=== PATIENT | male | born 1970 | race American Indian/Alaskan Native ===

== ENCOUNTER 2016-10-09 15:50 | Emergency (ER) | payer BC, OTHER ==
[2016-10-09] MEDS ORDERED: Sodium Chloride 0.9% 10 ML Syringe FLUSH PRN (16:22)
[2016-10-09 17:11] LABS: CHLORIDE,CL 103 mmol/L (101-111); SODIUM,NA 138 mmol/L (135-145)
--- NOTE | 2016-10-09 18:23 | CT ---
Clinical history: 46-year-old male fever, headache and confusion (recent exposure mosquitoes). Rule o ut sinusitis or intracranial abnormality. Scan technique: Volume acquisition of data emergency unenhanced CT scan of the facial bones, sinuses and head/brain obtained while the patient was lying supine on the Siemens multislice CT scanner [place], [place]. All data archived in the PACS system for storage, reforma tting and study (soft tissue, bone and brain windows). Interpretation: Mucoperiosteal thickening both maxillary antra but no pathologic air-fluid levels. The mastoid and other paranasal sinuses are symmetrically pneumatized and clear. No foreign bodies. N janna septum straight and nonedematous turbinates. Uniformly thick bony calvarium without sign of skull fracture, underlying brain contusion or abnormal extracerebral/intracranial epidural or subdural hematoma. Normal TMJs. Symmetric rosen-white matter pattern and underlying mirror-image normal ventricular system. Cerebellum and brainstem unremarkable. No hydrocephalus. No pathologic intracranial calcifications or signs of acute intracerebral/intraventricular/subarachno id bleed. No ischemic infarcts. CONCLUSION: Chronic maxillary sinusitis. Other sinuses clear. Negative unenhanced CT scan of the [facility] n.
[2016-10-09] MEDS ORDERED: Doxycycline 100 MG Cap PO ONE (18:38)
[2016-10-09] MEDS ORDERED: cefTRIAXone 1 GM in Sodium Chloride 0.9% 50 ML IV ONE (18:38)
[2016-10-09] MEDS ORDERED: Meclizine 12.5 MG Tab PO ONE (18:39)
[2016-10-09 19:02] VITALS: BP 127/85
--- NOTE | 2016-10-09 19:04 | EDM.PDOC ---
Scribed by Opal Olivera 10/09/16 1902 for Rakan Miller MD ED HPI GENERAL MEDICAL PROBLEM - General Chief Complaint: Fever Stated Complaint: FROM [facility] Time Seen by Provider: 10/09/16 16:13 Source of Information: Reports: Patient, RN Notes Reviewed, Other (Clinic provider) History Limitations: Reports: No Limitations - History of Present Illness INITIAL COMMENTS - FREE TEXT/NARRATIVE: Sent from clinic with complaint of fever x1 week with headache and a slight sense of confusion. Patient was treated last week with a Z-KELSEY which he completed for a diagnosis of pneumonia. Patient states the Z-KELSEY did seem to resolve his cough. The other symptoms seem to have persistent. His clinic provider was concerned [place] a week prior to onset of his symptoms, during which time he had extensive tick and mosquito exposure. Denies any nausea, vomiting, visual changes, neck pain or stiffness, swollen joints or rash. He admits to generalized body aches and mild vertigo. Location: Reports: Generalized Quality: Reports: Ache Severity: Moderate Improves with: Reports: None Worsens with: Reports: None Associated Symptoms: Reports: No Other Symptoms - Related Data Allergies Allergy/AdvReac Type Severity Reaction Status Date / Time aspirin Allergy Swelling Verified 10/09/16 16:17 Home Meds: Home Meds Azithromycin [Zithromax] 250 mg PO DAILY 10/09/16 [History] Social & Family History - Family History Family Medical History: Noncontributory ED ROS GENERAL - Review of Systems Review Of Systems: ROS reveals no pertinent complaints other than HPI. ED EXAM, GENERAL - Physical Exam Exam: See Below Exam Limited By: No Limitations General Appearance: Alert, WD/WN, No Apparent Distress Eye Exam: Bilateral Eye: Other (lateral gaze nystagmus) Ears: Normal External Exam, Normal Canal, Hearing Grossly Normal, Normal TMs Nose: Normal Inspection, Normal Mucosa, No Blood Throat/Mouth: Normal Inspection, Normal Lips, Normal Teeth, Normal Gums, Normal Oropharynx, Normal Voice, No Airway Compromise Head: Atraumatic, Normocephalic Neck: Other (No nuchal rigidity.) Respiratory/Chest: No Respiratory Distress, Lungs Clear, Normal Breath Sounds, No Accessory Muscle Use, Chest Non-Tender Cardiovascular: Normal Peripheral Pulses, Regular Rate, Rhythm, No Edema, No Gallop, No JVD, No Murmur, No Rub GI/Abdominal: Normal Bowel Sounds, Soft, Non-Tender, No Organomegaly, No Distention, No Abnormal Bruit, No Mass (Male) Exam: Deferred Rectal (Males) Exam: Deferred Back Exam: Normal Inspection, Full Range of Motion, NT Extremities: Normal Inspection, Normal Range of Motion, Non-Tender, Normal Capillary Refill, No Pedal Edema Neurological: Alert, Oriented, CN II-XII Intact, Normal Cognition, Normal Gait, Normal Reflexes, No Motor/Sensory Deficits Psychiatric: Normal Affect, Normal Mood Skin Exam: Warm, Dry, Intact, Normal Color, No Rash Course - Vital Signs Last Recorded V/S: Last Vital Signs Temp 36.1 C 10/09/16 19:01 Pulse 60 10/09/16 19:01 Resp 16 10/09/16 19:01 BP 127/85 10/09/16 19:01 Pulse Ox 99 10/09/16 19:01 - Orders/Labs/Meds Orders: Active Orders 24 hr Category Date Time Status Peripheral IV Care [RC] . DIRECTED Care 10/09/16 16:22 Active CULTURE BLOOD [BC] Stat Lab 10/09/16 16:34 Received CULTURE BLOOD [] Stat Lab 10/09/16 16:39 Received CULTURE STREP A CONFIRMATION [] Stat Lab 10/09/16 16:40 Results LYME/B.BURGDORFERI IGG/IGM [REF] Stat Lab 10/09/16 16:34 Received STREP SCRN A RAPID W CULT CONF [] Stat Lab 10/09/16 16:40 Results WEST NILE VIRUS IGM [REF] Stat Lab 10/09/16 16:34 Received Sodium Chloride 0.9% [Saline Flush] Med 10/09/16 16:22 Active 10 ml FLUSH ASDIRECTED PRN cefTRIAXone [Rocephin] 1 gm Med 10/09/16 18:38 Active Sodium Chloride 0.9% [Normal Saline] 50 ml IV ONETIME Blood Culture x2 Reflex Set [OM.PC] Stat Oth 10/09/16 16:21 Ordered Peripheral IV Insertion Adult [OM.PC] Stat Oth 10/09/16 16:21 Ordered Medication Orders Ceftriaxone Sodium 1 gm/ (Sodium Chloride) 50 mls @ 100 mls/hr IV ONETIME ONE Stop: 10/09/16 19:07 Last Admin: 10/09/16 18:57 Dose: 100 mls/hr Sodium Chloride (Saline Flush) 10 ml FLUSH ASDIRECTED PRN PRN Reason: Keep Vein Open Labs: Laboratory Tests 10/09/16 10/09/16 10/09/16 Range/Units 16:34 16:34 16:34 WBC 9.3 (5.0-10.0) 10^3/uL RBC 5.13 (4.6-6.2) 10^6/uL Hgb 15.2 (14.0-18.0) g/dL Hct 43.6 (40.0-54.0) % MCV 85.0 (80-100) fL MCH 29.6 (27.0-34.0) pg MCHC 34.9 (33.0-35.0) g/dL Plt Count 207 (150-450) 10^3/uL Neut % (Auto) 44.0 (42.2-75.2) % Lymph % (Auto) 43.3 (20.5-50.1) % [place] % (Auto) 7.5 (2-8) % Eos % (Auto) 5.0 H (1.0-3.0) % Baso % (Auto) 0.2 (0.0-1.0) % Add Manual Diff Yes Neutrophils % (Manual) 40 % Band Neutrophils % 1 % Lymphocytes % (Manual) 50 % Monocytes % (Manual) 4 % Eosinophils % (Manual) 5 % Atypical Lymphocytes Few Platelet Estimate Adequate Sodium 138 (135-145) mmol/L Potassium 4.3 (3.6-5.0) mmol/L Chloride 103 (101-111) mmol/L Carbon Dioxide 24.0 (21.0-31.0) mmol/L Anion Gap 15.3 BUN 11 (7-18) mg/dL Creatinine 0.9 (0.6-1.3) mg/dL Est Cr Clr Drug Dosing 116.70 mL/min Estimated GFR (MDRD) > 60 BUN/Creatinine Ratio 12.22 Glucose 88 (74-105) mg/dL Lactic Acid 1.3 (0.5-2.2) mmol/L Calcium 9.0 (8.4-10.2) mg/dl Total Bilirubin 0.6 (0.2-1.0) mg/dL AST 47 H (10-42) IU/L ALT 68 H (10-60) IU/L Alkaline Phosphatase 73 (42-121) IU/L Creatine Kinase 184 H (26-174) IU/L C-Reactive Protein (0.0-1.3) mg/dL Total Protein 7.4 (6.7-8.2) g/dl Albumin 4.5 (3.2-5.5) g/dl Globulin 2.9 Albumin/Globulin Ratio 1.55 Urine Color (YELLOW) Urine Appearance (CLEAR) Urine pH (5.0-9.0) Ur Specific [place] (1.005-1.030) Urine Protein (NEGATIVE) Urine Glucose (UA) (NEGATIVE) Urine Ketones (NEGATIVE) Urine Occult Blood (NEGATIVE) Urine Nitrite (NEGATIVE) Urine Bilirubin (NEGATIVE) Urine Urobilinogen (0.2-1.0) mg/dL Ur Leukocyte Esterase (NEGATIVE) Urine RBC /HPF Urine WBC (0-5/HPF) /HPF Ur Epithelial Cells /HPF Urine Bacteria (0-FEW/HPF) /HPF 10/09/16 10/09/16 Range/Units 16:34 16:42 WBC (5.0-10.0) 10^3/uL RBC (4.6-6.2) 10^6/uL Hgb (14.0-18.0) g/dL Hct (40.0-54.0) % MCV (80-100) fL MCH (27.0-34.0) pg MCHC (33.0-35.0) g/dL Plt Count (150-450) 10^3/uL Neut % (Auto) (42.2-75.2) % Lymph % (Auto) (20.5-50.1) % [place] % (Auto) (2-8) % Eos % (Auto) (1.0-3.0) % Baso % (Auto) (0.0-1.0) % Add Manual Diff Neutrophils % (Manual) % Band Neutrophils % % Lymphocytes % (Manual) % Monocytes % (Manual) % Eosinophils % (Manual) % Atypical Lymphocytes Platelet Estimate Sodium (135-145) mmol/L Potassium (3.6-5.0) mmol/L Chloride (101-111) mmol/L Carbon Dioxide (21.0-31.0) mmol/L Anion Gap BUN (7-18) mg/dL Creatinine (0.6-1.3) mg/dL Est Cr Clr Drug Dosing mL/min Estimated GFR (MDRD) BUN/Creatinine Ratio Glucose (74-105) mg/dL Lactic Acid (0.5-2.2) mmol/L Calcium (8.4-10.2) mg/dl Total Bilirubin (0.2-1.0) mg/dL AST (10-42) IU/L ALT (10-60) IU/L Alkaline Phosphatase (42-121) IU/L Creatine Kinase (26-174) IU/L C-Reactive Protein 0.7 (0.0-1.3) mg/dL Total Protein (6.7-8.2) g/dl Albumin (3.2-5.5) g/dl Globulin Albumin/Globulin Ratio Urine Color Yellow (YELLOW) Urine Appearance Clear (CLEAR) Urine pH 7.0 (5.0-9.0) Ur Specific [place] 1.015 (1.005-1.030) Urine Protein Negative (NEGATIVE) Urine Glucose (UA) Negative (NEGATIVE) Urine Ketones Negative (NEGATIVE) Urine Occult Blood Negative (NEGATIVE) Urine Nitrite Negative (NEGATIVE) Urine Bilirubin Negative (NEGATIVE) Urine Urobilinogen 0.2 (0.2-1.0) mg/dL Ur Leukocyte Esterase Negative (NEGATIVE) Urine RBC 0-5 /HPF Urine WBC 0-5 (0-5/HPF) /HPF Ur Epithelial Cells Few /HPF Urine Bacteria Rare (0-FEW/HPF) /HPF Meds: Medications Generic Name Dose Route Start Last Admin Trade Name Freq PRN Reason Stop Dose Admin Ceftriaxone Sodium 1 gm/ 50 mls @ 100 mls/hr 10/09/16 18:38 10/09/16 18:57 Sodium Chloride IV 10/09/16 19:07 100 mls/hr ONETIME ONE Administration Sodium Chloride 10 ml 10/09/16 16:22 Saline Flush FLUSH ASDIRECTED PRN Keep Vein Open Discontinued Medications Generic Name Dose Route Start Last Admin Trade Name Freq PRN Reason Stop Dose Admin Doxycycline Hyclate 200 mg 10/09/16 18:38 10/09/16 18:58 Vibramycin PO 10/09/16 18:39 200 mg ONETIME ONE Administration Meclizine HCl 25 mg 10/09/16 18:39 10/09/16 18:59 Antivert PO 10/09/16 18:40 25 mg ONETIME ONE Administration - Radiology Interpretation Free Text/Narrative:: CT Luis facial: Chronic maxillary sinusitis. Other sinuses clear. Negative unenhanced CT scan of brain. See rad report. - Re-Assessments/Exams Free Text/Narrative Re-Assessment/Exam: 10/09/16 18:59 The case was discussed with Dr. Casanova and after discussion it was decided that the patient would be discharged home to return to tomorrow for IV antibiotic. Departure - Departure Time of Disposition: 19:00 Disposition: Home, Self-Care 01 Condition: Fair Clinical Impression: Fever of unknown origin Sinusitis Qualifiers: Sinusitis location: unspecified location Chronicity: unspecified Qualified Code (s): J32.9 - Chronic sinusitis, unspecified Labyrinthitis Qualifiers: Laterality: bilateral Qualified Code(s): H83.03 - Labyrinthitis, bilateral - Discharge Information Instructions: Labyrinthitis, [id number], Sinusitis, Adult, [id number], Fever, Adult, [id number] Forms: ED Department Discharge Additional Instructions: Return tomorrow for IV antibiotics as instructed. Return to ER if worse at any time. - My Orders Last 24 Hours: My Active Orders 10/09/16 16:21 Blood Culture x2 Reflex Set [OM.PC] Stat Peripheral IV Insertion Adult [OM.PC] Stat 10/09/16 16:22 Peripheral IV Care [RC] . DIRECTED Sodium Chloride 0.9% [Saline Flush] 10 ml FLUSH ASDIRECTED PRN 10/09/16 16:34 CULTURE BLOOD [BC] Stat LYME/B.BURGDORFERI IGG/IGM [REF] Stat WEST [place]ILE VIRUS IGM [REF] Stat 10/09/16 16:39 CULTURE BLOOD [BC] Stat 10/09/16 16:40 CULTURE STREP A CONFIRMATION [RM] Stat STREP SCRN A RAPID W CULT CONF [] Stat 10/09/16 18:38 cefTRIAXone [Rocephin] 1 gm Sodium Chloride 0.9% [Normal Saline] 50 ml IV ONETIME - Assessment/Plan Last 24 Hours: My Active Orders 10/09/16 16:21 Blood Culture x2 Reflex Set [OM.PC] Stat Peripheral IV Insertion Adult [OM.PC] Stat 10/09/16 16:22 Peripheral IV Care [RC] . DIRECTED Sodium Chloride 0.9% [Saline Flush] 10 ml FLUSH ASDIRECTED PRN 10/09/16 16:34 CULTURE BLOOD [BC] Stat LYME/B.BURGDORFERI IGG/IGM [REF] Stat WEST [place]ILE VIRUS IGM [REF] Stat 10/09/16 16:39 CULTURE BLOOD [BC] Stat 10/09/16 16:40 CULTURE STREP A CONFIRMATION [RM] Stat STREP SCRN A RAPID W CULT CONF [RM] Stat 10/09/16 18:38 cefTRIAXone [Rocephin] 1 gm Sodium Chloride 0.9% [Normal Saline] 50 ml IV ONETIME I have read and agree with the documentation that has been completed regarding this visit. By signing this record, I attest that the documentation was completed in my physical presence and is an accurate record of the encounter.
== END 2016-10-09 19:32 | disposition home or self-care (01) ==
LOC: DL.ED 15:50
DX: J32.9 Chronic sinusitis, unspecified (principal); H83.03 Labyrinthitis, bilateral; Z88.6 Allergy status to analgesic agent
CPT/HCPCS: 36415; 70450; 70486; 80053; 81001; 82550; 83605; 85025; 86140; 86618; 86788; 87040; 87081; 87430; 96365; 99284; A9270; J0696; J7050

== ENCOUNTER 2017-03-31 13:48 | Emergency (ER) | payer OTHER ==
[2017-03-31 14:18] VITALS: BP 129/83
== END 2017-03-31 17:00 | disposition left against medical advice (07) ==
LOC: DL.ED 13:48
DX: Z53.21 Procedure and treatment not carried out due to patient leaving prior to being seen by health care provider (principal)
CPT/HCPCS: 99282

== ENCOUNTER 2018-03-23 05:14 | Day surgery (SDC) | payer OTHER ==
[2018-03-23] MEDS ORDERED: Midazolam 1 MG/ML 2 ML SDV IV ONE ×7 (05:15→06:48)
[2018-03-23] MEDS ORDERED: fentaNYL 100 MCG/2 ML SDV IV ONE ×7 (05:15→06:56)
[2018-03-23] MEDS ORDERED: Dextrose 5%-0.45% NaCl 1,000 ML IV SCH (06:00)
[2018-03-23] MEDS ORDERED: Sodium Chloride 0.9% 10 ML Syringe FLUSH PRN (06:00)
[2018-03-23] MEDS ORDERED: Midazolam 1 MG/ML 2 ML SDV ONE (06:13)
[2018-03-23] MEDS ORDERED: fentaNYL 100 MCG/2 ML SDV ONE (06:13)
--- NOTE | 2018-03-23 07:56 | OR ---
DATE: 03/23/2018 INSTRUMENT USED: [id number] video colonoscope. PREMEDICATIONS: Fentanyl 200 mcg intravenous, Versed 4 mg intravenous. The procedure was done under pulse oximetry, BP recording, and quality assurance monitor. INDICATION: The patient with longstanding alternating constipation and diarrhea, and it is more pronounced recently. Colonoscopic examination is done for detection of any polypoid lesions and removal, endoscopic hemostasis therapy if needed. DESCRIPTION OF PROCEDURE: Initial rectal exam was unremarkable. Rigid anoscopy showed small internal hemorrhoids without bleeding from them. The colonoscope was passed with relative ease up to the ileocecal area. Photographs were taken of the normal-appearing cecum, identified by landmarks of the appendiceal orifice and double-bulged ileocecal folds. No bleeding was noted from any of the visualized areas at the commencement of the examination. The bowel preparation was found to be adequate, [place] scale 2. No stricture. No vascular ectasia. No large isolated ulcerations seen. No evidence of diffuse inflammatory bowel disease in the form of friability, contact bleeding, or ulcerations. No polyp or tumor mass identified. Probing the proximal sides of folds and flexures, using adequate distention and clearing of the stool material, withdrawal of the scope was made, cecum to rectum time over 6 minutes. No bleeding was noted from any of the visualized areas at the completion of examination. IMPRESSION: Internal hemorrhoids. The patient tolerated the procedure well. [facility] /[id number]
[2018-03-23 10:02] VITALS: BP 128/88
== END 2018-03-23 09:19 | disposition home or self-care (01) ==
LOC: DL.ENDO 05:14
PROVIDERS: ATTEND Internal Medicine Gastroenterology
DX: K59.00 Constipation, unspecified (principal); R19.7 Diarrhea, unspecified; K64.8 Other hemorrhoids; K21.9 Gastro-esophageal reflux disease without esophagitis; E66.09 Other obesity due to excess calories; Z68.33 Body mass index [BMI] 33.0-33.9, adult; Z90.49 Acquired absence of other specified parts of digestive tract; Z88.6 Allergy status to analgesic agent
CPT/HCPCS: J2250; J3010; J7042

== ENCOUNTER 2023-03-09 19:33 | Emergency (ER) | payer OTHER ==
[2023-03-09] MEDS: Sodium Chloride 0.9% 10 ML Syringe FLUSH PRN (19:51)
[2023-03-09 20:06] LABS: BASOPHILS PERCENT AUTO 0.2 % (0.0-1.0); EOSINOPHILS PERCENT AUTO 0.1 % (1.0-3.0); HEMATOCRIT 44.4 % (40.0-54.0); HEMOGLOBIN 15.5 g/dL (14.0-18.0); LYMPHOCYTES PERCENT AUTO 8.5 % (20.5-50.1); MEAN CORPUSCULAR HGB CONC 34.9 g/dL (33.0-35.0); MEAN CORPUSCULAR VOLUME 83.1 fL (80-100); MONOCYTES PERCENT AUTO 6.9 % (2-8); NEUTROPHILS PERCENT AUTO 84.3 % (42.2-75.2); PLATELET COUNT,PLT 166 10^3/uL (150-450); RED BLOOD CELL COUNT 5.34 10^6/uL (4.6-6.2); WHITE BLOOD CELL COUNT,WBC 12.2 10^3/uL (5.0-10.0)
[2023-03-09 20:34] LABS: A/G RATIO 1.2; ALBUMIN 3.8 g/dL (3.4-5.0); ANION GAP 17.2 mEq/L (7-13); BILIRUBIN TOTAL 0.8 mg/dL (0.2-1.0); BUN/CREATININE RATIO 11.8 (No establ ref range); C-REACTIVE PROTEIN 2.47 ng/dL (<=0.50); CALCIUM 8.6 mg/dL (8.5-10.1); CREATININE 1.02 mg/dL (0.70-1.30); EST CRCL DRUG DOSING (CG) 90.87 mL/min; MAGNESIUM 1.5 mg/dL (1.8-2.4); POTASSIUM,K 4.2 mmol/L (3.5-5.1); PROTEIN TOTAL,TP 6.9 g/dL (6.4-8.2)
[2023-03-09 20:36] LABS: APPEARANCE,URINE CLEAR (CLEAR); BILIRUBIN,URINE NEGATIVE (NEGATIVE); COLOR,URINE YELLOW (YELLOW); GLUCOSE,URINE NEGATIVE (NEGATIVE); KETONES,URINE NEGATIVE (NEGATIVE); LEUKOCYTE ESTERASE,URINE NEGATIVE (NEGATIVE); NITRITE,URINE NEGATIVE (NEGATIVE); OCCULT BLOOD,URINE NEGATIVE (NEGATIVE); PROTEIN,URINE NEGATIVE (NEGATIVE)
[2023-03-09 20:37] LABS: LACTIC ACID 1.6 mmol/L (0.4-2.0)
[2023-03-09 20:58] LABS: CORONAVIRUS COVID-19 NAA NEGATIVE (NEGATIVE); INFLUENZA A NAA NEGATIVE (NEGATIVE); INFLUENZA B NAA NEGATIVE (NEGATIVE); RESPIRATORY SYNCYTIAL VIR NAA NEGATIVE (NEGATIVE)
[2023-03-09 21:12] LABS: PROTHROMBIN TIME 9.9 SEC (9.0-12.0); PTT,PARTIAL THROMBOPLSTIN TIME 28.6 SEC (22.0-34.0)
[2023-03-09] MEDS: Ketorolac 30 MG/ML SDV IVPUSH ONE (21:42)
[2023-03-09] MEDS: Sodium Chloride 0.9% 1,000 ML IV ONE (21:43)
[2023-03-09 21:49] VITALS: BP 127/82; PULSE 84
[2023-03-09] MEDS: Iopamidol 612 MG/ML 100 ML Bottle IVPUSH ONE (22:17)
[2023-03-09] MEDS: Azithromycin 250 MG Tab PO ONE (23:00)
== END 2023-03-09 23:06 | disposition home or self-care (01) ==
LOC: DL.ED 19:33
DX: D72.825 Bandemia (principal); R50.9 Fever, unspecified; E66.9 Obesity, unspecified; Z88.0 Allergy status to penicillin; Z88.5 Allergy status to narcotic agent; Z68.35 Body mass index [BMI] 35.0-35.9, adult
CPT/HCPCS: 0241U; 36415; 71045; 74177; 80053; 81003; 83605; 83735; 84484; 85025; 85610; 85730; 86140; 87081; 87430; 93005; 93010; 96361; 96374; 99284; 99285-25; A9270-GY; J1885; J3490; J7030; Q9967

== ENCOUNTER 2023-10-22 12:43 | Emergency (ER) | payer OTHER ==
[2023-10-22 13:53] LABS: BASOPHILS PERCENT AUTO 0.1 % (0.0-1.0); HEMATOCRIT 53.5 % (40.0-54.0); HEMOGLOBIN 18.4 g/dL (14.0-18.0); LYMPHOCYTES PERCENT AUTO 7.9 % (20.5-50.1); MEAN CORPUSCULAR HEMOGLOBIN 28.8 pg (27.0-34.0); MEAN CORPUSCULAR HGB CONC 34.4 g/dL (33.0-35.0); MEAN CORPUSCULAR VOLUME 83.7 fL (80-100); MONOCYTES PERCENT AUTO 5.5 % (2-8); NEUTROPHILS PERCENT AUTO 86.5 % (42.2-75.2); PLATELET COUNT,PLT 220 10^3/uL (150-450); RED BLOOD CELL COUNT 6.39 10^6/uL (4.6-6.2); WHITE BLOOD CELL COUNT,WBC 16.8 10^3/uL (5.0-10.0)
[2023-10-22 14:11] LABS: ALANINE AMINOTRANSFERASE,ALT 45 U/L (16-63); ALBUMIN 4.3 g/dL (3.4-5.0); ALKALINE PHOSPHATASE 102 U/L (46-116); ANION GAP 13.2 mEq/L (7-13); ASPARTATE AMNIOTRANSFERASE,AST 34 U/L (15-37); BILIRUBIN TOTAL 0.7 mg/dL (0.2-1.0); BLOOD UREA NITROGEN,BUN 17 mg/dL (7-18); BUN/CREATININE RATIO 15.6 (No establ ref range); CALCIUM 10.2 mg/dL (8.5-10.1); CARBON DIOXIDE,CO2 31 mmol/L (21-32); CHLORIDE,CL 98 mmol/L (98-107); CREATININE 1.09 mg/dL (0.70-1.30); ESTIMATED GFR 80 mL/min (>=60); GLUCOSE RANDOM 143 mg/dL (70-99); LIPASE 186 U/L (16-77); MAGNESIUM 1.9 mg/dL (1.8-2.4); POTASSIUM,K 4.2 mmol/L (3.5-5.1); PROTEIN TOTAL,TP 8.7 g/dL (6.4-8.2); SODIUM,NA 138 mmol/L (136-145)
[2023-10-22] MEDS: Sodium Chloride 0.9% 1,000 ML IV ONE ×2 (14:44→17:28)
[2023-10-22] MEDS: Ondansetron 4 MG Tab.DIS PO ONE (14:44)
[2023-10-22 15:59] LABS: APPEARANCE,URINE CLEAR (CLEAR); BILIRUBIN,URINE NEGATIVE (NEGATIVE); GLUCOSE,URINE NEGATIVE (NEGATIVE); KETONES,URINE 40 (NEGATIVE); LEUKOCYTE ESTERASE,URINE NEGATIVE (NEGATIVE); NITRITE,URINE NEGATIVE (NEGATIVE); OCCULT BLOOD,URINE NEGATIVE (NEGATIVE); PH,URINE 6.5 (5.0-9.0); PROTEIN,URINE 30 (NEGATIVE); UROBILINOGEN,URINE 0.2 mg/dL (0.2-1.0)
[2023-10-22 16:00] LABS: COLOR,URINE DARK YELLOW (YELLOW)
[2023-10-22] MEDS: Ondansetron 4 MG/2 ML SDV IVPUSH ONE (16:06)
[2023-10-22 16:09] LABS: BACTERIA,URINE FEW /HPF (0-FEW/HPF); EPITHELIAL CELLS,URINE RARE /HPF (NOT SEEN); MUCUS,URINE FEW /LPF (NOT SEEN); RBC,URINE NOT SEEN /HPF (0-5); WBC,URINE 0-5 /HPF (0-5/HPF)
[2023-10-22] MEDS: Iopamidol 612 MG/ML 100 ML Bottle IVPUSH ONE (16:26)
[2023-10-22] MEDS ORDERED: Pantoprazole 40 MG in Sodium Chloride 0.9% 100 ML IV SCH (17:15)
[2023-10-22] MEDS: diphenhydrAMINE 50 MG/ML SDV IVPUSH ONE (17:22)
[2023-10-22] MEDS: Pantoprazole 40 MG Vial IVPUSH ONE (17:24)
[2023-10-22] MEDS: Metoclopramide 10 MG/2 ML SDV IVPUSH ONE (17:26)
[2023-10-22] MEDS: Morphine 4 MG/ML Syringe IVPUSH ONE (18:55)
[2023-10-22] MEDS: Take Home: Ondansetron 4 MG Tab.DIS, 5 Tab Pack PO ONE (19:11)
[2023-10-22 19:33] VITALS: BP 137/88; PULSE 82
== END 2023-10-22 19:30 | disposition home or self-care (01) ==
LOC: DL.ED 12:43
DX: K52.9 Noninfective gastroenteritis and colitis, unspecified (principal); K27.9 Peptic ulcer, site unspecified, unspecified as acute or chronic, without hemorrhage or perforation; I10 Essential (primary) hypertension; E66.9 Obesity, unspecified; Z68.31 Body mass index [BMI] 31.0-31.9, adult; Z90.49 Acquired absence of other specified parts of digestive tract; Z88.0 Allergy status to penicillin; Z88.8 Allergy status to other drugs, medicaments and biological substances
CPT/HCPCS: 36415; 71045; 74177; 80053; 81001; 83690; 83735; 84484; 85025; 93005; 96361; 96374; 96375; 99285-25; A9270-GY; J1200; J2270; J2405; J2470; J2765; J7030; Q0162; Q9967

== ENCOUNTER → 2024-03-20 | Day surgery (SDC) | payer OTHER ==
[~2024-03-20] MED LIST: Midazolam 1 MG/ML 2 ML SDV IV ONE; Midazolam 1 MG/ML 2 ML SDV ONE; fentaNYL 100 MCG/2 ML SDV IV ONE; fentaNYL 100 MCG/2 ML SDV ONE
[2024-03-20] MEDS: Sodium Chloride 0.9% 500 ML IV SCH (05:57)
[2024-03-20] MEDS: fentaNYL 100 MCG/2 ML SDV IV ONE ×4 (06:27→06:36)
[2024-03-20] MEDS: Midazolam 1 MG/ML 2 ML SDV IV ONE ×6 (06:28→06:33)
[2024-03-20 08:19] VITALS: BP 145/96; PULSE 63
== END ==
LOC: DL.ENDO 05:27
PROVIDERS: ATTEND Internal Medicine Gastroenterology
DX: K64.8 Other hemorrhoids (principal); K62.89 Other specified diseases of anus and rectum; Z86.16 Personal history of COVID-19
CPT/HCPCS: 45378; J2250; J3010; J7040

== ENCOUNTER 2024-04-01 05:42 | Emergency (ER) | payer OTHER ==
[2024-04-01] MEDS: Aspirin 81 MG Tab.Chew PO ONE (06:10)
[2024-04-01 06:14] LABS: BASOPHILS PERCENT AUTO 0.1 % (0.0-1.0); EOSINOPHILS PERCENT AUTO 3.2 % (1.0-3.0); HEMATOCRIT 46.1 % (40.0-54.0); HEMOGLOBIN 15.9 g/dL (14.0-18.0); LYMPHOCYTES PERCENT AUTO 29.1 % (20.5-50.1); MEAN CORPUSCULAR HGB CONC 34.5 g/dL (33.0-35.0); NEUTROPHILS PERCENT AUTO 54.6 % (42.2-75.2); PLATELET COUNT,PLT 165 10^3/uL (150-450); RED BLOOD CELL COUNT 5.49 10^6/uL (4.6-6.2); WHITE BLOOD CELL COUNT,WBC 7.9 10^3/uL (5.0-10.0)
[2024-04-01 06:26] LABS: A/G RATIO 1.1; ALBUMIN 3.6 g/dL (3.4-5.0); BILIRUBIN TOTAL 0.6 mg/dL (0.2-1.0); BUN/CREATININE RATIO 17.4 (No establ ref range); CALCIUM 8.6 mg/dL (8.5-10.1); CREATININE 0.86 mg/dL (0.70-1.30); EST CRCL DRUG DOSING (CG) 106.52 mL/min; PROTEIN TOTAL,TP 6.9 g/dL (6.4-8.2)
[2024-04-01] MEDS: Nitroglycerin 0.4 MG Tab.SL SL ONE (06:44)
[2024-04-01] MEDS: Heparin Sodium 5,000 Units/ML Vial IVPUSH ONE (06:52)
[2024-04-01] MEDS: Ketorolac 30 MG/ML SDV IVPUSH ONE (06:53)
[2024-04-01] MEDS: GI Cocktail Oral Solution 30 ML PO ONE (06:54)
[2024-04-01] MEDS: Heparin Sodium/0.45% NaCl 25,000 UNITS/500 ML BAG IV SCH (06:59)
[2024-04-01] MEDS: Nitroglycerin/D5W 25 MG/250 ML BOTTLE IV SCH (07:07)
[2024-04-01 07:42] VITALS: BP 119/73; PULSE 63
== END 2024-04-01 08:24 ==
LOC: DL.ED 05:42
DX: I21.4 Non-ST elevation (NSTEMI) myocardial infarction (principal); I10 Essential (primary) hypertension; E66.9 Obesity, unspecified; Z88.0 Allergy status to penicillin; Z79.899 Other long term (current) drug therapy; Z86.16 Personal history of COVID-19; Z90.49 Acquired absence of other specified parts of digestive tract; Z68.33 Body mass index [BMI] 33.0-33.9, adult
CPT/HCPCS: 36415; 71045; 80053; 84484; 85025; 85379; 85730; 93005; 96365; 96368; 99285; A9270; J1644; J2305